=== PATIENT | male | born 1940 | race Caucasian/White ===

== ENCOUNTER 2016-09-06 11:55 | Emergency (ER) | payer MEDICARE ==
[~2016-09-06] VITALS: Ht 172.7 cm; Wt 70.0 kg
[~2016-09-06 11:55] MED LIST: ACLI400A2 IH; ALBU18HF INH; DOXY100T PO; GUAI600T22 PO; MONT5TAB9 PO; PRED10TA PO
[2016-09-06 11:57] VITALS: BP 123/66
[2016-09-06] MEDS ORDERED: FLUORESCEIN OPHTHALMIC 1 MG STRIP ONE (12:20)
[2016-09-06] MEDS ORDERED: PROPARACAINE OPHTH 0.5%, 15ML ONE (12:20)
[2016-09-06] MEDS ORDERED: PROPARACAINE OPHTH 0.5%, 15ML EACHEYE ONE (12:30)
[2016-09-06] MEDS ORDERED: FLUORESCEIN OPHTHALMIC 1 MG STRIP EACHEYE ONE (12:30)
== END 2016-09-06 13:26 | disposition home or self-care (01) ==
LOC: ED 13:20
DX: T15.11XA Foreign body in conjunctival sac, right eye, initial encounter (principal); J44.9 Chronic obstructive pulmonary disease, unspecified; X58.XXXA Exposure to other specified factors, initial encounter; Y93.89 Activity, other specified; Y99.8 Other external cause status; Y92.89 Other specified places as the place of occurrence of the external cause
CPT/HCPCS: 99284

== ENCOUNTER 2017-04-15 08:27 | Inpatient (IN) | payer MEDICARE ==
[~2017-04-15] VITALS: Ht 172.7 cm; Wt 66.4 kg
[~2017-04-15 08:27] MED LIST changes: -GUAI600T22 PO; +GUAI600T31 PO; +LOSA25TA5 PO; +MONT4GRA PO; +TICA90TA PO
[2017-04-15] MEDS ORDERED: EPINEPHRINE 1 MG/ML, 1ML ONE (11:43)
[2017-04-15] MEDS ORDERED: BUPIVACAINE/PF 0.5% ONE (11:43)
[2017-04-15] MEDS ORDERED: FENTANYL PF 100 MCG/2ML ONE ×2 (14:41→14:42)
[2017-04-15] MEDS ORDERED: MIDAZOLAM 1 MG/ML, 2ML ONE (14:42)
[2017-04-15] MEDS ORDERED: HYDROmorphone 2 MG/ML, 1ML ONE (16:33)
[2017-04-15] MEDS ORDERED: hydrALAzine 20 MG/ML, 1ML ONE (17:06)
[2017-04-15] MEDS ORDERED: OXYcodone 5 MG/5 ML ORAL.SOL UDC ONE (17:07)
[2017-04-15] MEDS ORDERED: HYDROmorphone 1 MG/ML, 1ML IV PRN (17:30)
[2017-04-15] MEDS ORDERED: ONDANSETRON 2MG/ML, 2ML IVPush PRN (17:30)
[2017-04-15] MEDS ORDERED: OXYcodone 5 MG/5 ML ORAL.SOL UDC PO PRN ×2 (17:30→22:30)
[2017-04-15] MEDS ORDERED: hydrALAzine 20 MG/ML, 1ML IV PRN (17:30)
[2017-04-15] MEDS ORDERED: FENTANYL PF 100 MCG/2ML IV PRN (17:30)
[2017-04-15] MEDS ORDERED: LABETALOL 5MG/ML, 20ML IV PRN (17:30)
[2017-04-15] MEDS ORDERED: MORPHINE SULFATE 4 MG/ML, 1ML IVPush PRN (22:00)
[2017-04-15] MEDS ORDERED: D5%-0.45NACL+KCL 20MEQ 1,000 ML IV SCH (22:00)
[2017-04-15] MEDS ORDERED: ACETAMINOPHEN 325 MG TABLET PO SCH (22:00)
[2017-04-15] MEDS ORDERED: IBUPROFEN 600 MG TABLET PO PRN (22:00)
[2017-04-15] MEDS: ONDANSETRON 2MG/ML, 2ML IVPush PRN (22:23)
[2017-04-15 22:28] VITALS: BP 136/77
[2017-04-15 23:12] VITALS: BP 132/72
[2017-04-15] MEDS ORDERED: ACETAMINOPHEN 500 MG TABLET PO PRN (23:30)
[2017-04-15] MEDS: ACETAMINOPHEN 500 MG TABLET PO SCH (23:57)
[2017-04-16 00:33] VITALS: BP 122/70
[2017-04-16 01:55] VITALS: BP 144/68
[2017-04-16] MEDS ORDERED: FAMOTIDINE 20 MG/2 ML IVPush ONE (05:30)
[2017-04-16] MEDS ORDERED: ONDANSETRON 2MG/ML, 2ML IVPush PRN (05:30)
[2017-04-16] MEDS: ACETAMINOPHEN 500 MG TABLET PO SCH ×4 (05:45→23:45)
[2017-04-16] MEDS: ALUMINUM/MAG/SIMETHICONE 30 ML UDC PO PRN ×2 (05:52→21:38)
[2017-04-16 06:42] VITALS: BP 109/60
[2017-04-16] MEDS: ONDANSETRON 2MG/ML, 2ML IVPush PRN (09:23)
[2017-04-16] MEDS ORDERED: ACETAMINOPHEN 325 MG TABLET ONE (11:55)
[2017-04-16 12:24] VITALS: BP 115/52
[2017-04-16] MEDS ORDERED: PROCHLORPERAZINE 5 MG/ML, 2ML IM PRN (13:00)
[2017-04-16] MEDS: SUCRALFATE 1 GM/10 ML UDC PO SCH ×3 (13:00→20:05)
[2017-04-16 13:27] LABS: BASOPHILS # (AUTO) 0.04 x10^3/uL (0-0.1); BASOPHILS % (AUTO) 0 % (0-1); EOSINOPHILS % (AUTO) 0 % (1-7); LYMPHOCYTES # (AUTO) 1.76 x10^3/uL (1-3.4); LYMPHOCYTES % (AUTO) 11 % (22-44); MD NO; MEAN CORPUSCULAR HEMOGLOBIN 32.1 pg (27.5-34.5); MEAN CORPUSCULAR HGB CONC 33.5 g/dL (33.2-36.2); MEAN CORPUSCULAR VOLUME 95.6 fL (81-97); MONOCYTES # (AUTO) 1.02 x10^3/uL (0.2-0.8); MONOCYTES % (AUTO) 7 % (2-9); NEUTROPHILS # (AUTO) 12.61 x10^3/uL (1.8-6.8); NEUTROPHILS % (AUTO) 82 % (42-75); PLATELET COUNT 311 x10^3/uL (130-400); RED BLOOD COUNT 4.12 x10^6/uL (4.38-5.82)
[2017-04-16 13:39] LABS: ALANINE AMINOTRANSFERASE 240 U/L (12-78); ALBUMIN 3.2 g/dL (3.4-5.0); ANION GAP 6 mmol/L (5-15); CALCIUM 8.4 mg/dL (8.5-10.1); CHLORIDE 98 mmol/L (98-107)
[2017-04-16 13:42] LABS: ALKALINE PHOSPHATASE 349 U/L (45-117); BILIRUBIN,TOTAL 1.6 mg/dL (0.2-1.0); CREATININE 0.61 mg/dL (0.7-1.3); TOTAL PROTEIN 6.3 g/dL (6.4-8.2); TROPONIN I < 0.015 ng/mL (0.000-0.045)
[2017-04-16] MEDS: METOCLOPRAMIDE 5 MG/ML, 2ML IVPush SCH ×2 (13:42→20:05)
[2017-04-16 19:33] VITALS: BP 128/64
[2017-04-16] MEDS: FAMOTIDINE 20 MG/2 ML IVPush SCH (20:05)
[2017-04-17 01:48] VITALS: BP 115/67
[2017-04-17] MEDS: METOCLOPRAMIDE 5 MG/ML, 2ML IVPush SCH ×3 (02:00→14:26)
[2017-04-17] MEDS: ACETAMINOPHEN 500 MG TABLET PO SCH ×2 (05:07→11:45)
[2017-04-17] MEDS: SUCRALFATE 1 GM/10 ML UDC PO SCH ×2 (07:15→11:34)
[2017-04-17 07:52] VITALS: BP 159/81
[2017-04-17] MEDS ORDERED: D5%-0.9% NACL 1,000 ML IV SCH (08:00)
[2017-04-17] MEDS: FAMOTIDINE 20 MG/2 ML IVPush SCH (08:18)
[2017-04-17 12:35] VITALS: BP 145/74
[2017-04-17 14:52] VITALS: BP 159/76
[2017-04-17] MEDS ORDERED: OXYC5CAP2 PO (15:07)
[2017-04-17] MEDS ORDERED: ACET-1600 PO (15:08)
[2017-04-17] MEDS ORDERED: FAMOTIDINE 20 MG TABLET PO SCH (21:00)
== END 2017-04-17 15:20 | disposition home or self-care (01) | DRG 418 ==
LOC: OUT 08:27 → ORIP 22:06 → 3WST 22:30 → 4NOR 04-16 01:45 → OBSVTOIN 04-16 12:45 → DCLOUNGE 04-17 15:05
PROVIDERS: ADMIT Surgery; ATTEND Surgery
PROC: 0FT44ZZ Resection of Gallbladder, Percutaneous Endoscopic Approach (ICD-10-PCS; principal; 2017-04-15 12:15)
DX: K80.50 Calculus of bile duct without cholangitis or cholecystitis without obstruction (principal); E44.1 Mild protein-calorie malnutrition; K21.9 Gastro-esophageal reflux disease without esophagitis; K80.20 Calculus of gallbladder without cholecystitis without obstruction; K66.0 Peritoneal adhesions (postprocedural) (postinfection)
CPT/HCPCS: 36415; 80053; 84484; 85025; 88304; 93005; G0378; J0171; J1170; J2250; J2405; J3010; J3490; J0360; J2765; J3480; S0028